=== PATIENT | female | born 2005 | race Hispanic/Latino ===

== ENCOUNTER 2025-01-02 23:25 | Emergency (ER) | payer SELFPAY ==
[~2025-01-02] VITALS: Ht 154.9 cm; Wt 68.0 kg
--- NOTE | 2025-01-03 00:13 | NUR ---
PT SITTING IN FRONT OF TRIAGE 1 AT THIS TIME WITH FAMILY, ON PHONE . GOOD CHEST RISE AND FALL OBSERVED
[2025-01-03] MEDS ORDERED: PHEN26CR2 TP (00:33)
[2025-01-03] MEDS ORDERED: LACT20PA6 PO (00:33)
--- NOTE | 2025-01-03 00:33 | ERN ---
ED Note History of Present Illness Stated Complaint: RECTAL BALL Chief Complaint: Hemorrhoids Time Seen by MD: 23:35 Time Seen by Midlevel: 23:38 Dictation: 19-YEAR-OLD FEMALE WITH NO PAST MEDICAL HISTORY COMING IN COMPLAINING OF A POSSIBLE HEMORRHOID AND CONSTIPATION. PATIENT STATES SHE HAS A HISTORY OF CONSTIPATION WITH [employer]IRY PRODUCTS AND SHE HAD A PIZZA YESTERDAY AND NOW FEELS CONSTIPATED. PATIENT STATES WHEN SHE WIPES THERE SPLINT ON THE TOILET PAPER BUT NONE IN HIS STOOL. STATES HER STOOLS ARE SMALL AND HARD. Allergies: Coded Allergies: No Known Allergies (Unverified Allergy, Unknown, 01/02/25) Past Medical History Past Medical History: Anemia Surgical History: None LMP: Dec 08, 2024 Review of System Dictation CONSTITUTIONAL: NEGATIVE FOR FEVER,CHILLS, AND WEIGHT LOSS EYES: NEGATIVE FOR INJURY, PAIN,REDNESS, AND DISCHARGE ENT: NEGATIVE FOR INJURY,PAIN OR SWELLING CARDIOVASCULAR: NEGATIVE FOR CHEST PAIN, PALPITATIONS, AND EDEMA RESPIRATORY: NEGATIVE FOR SHORTNESS OF BREATH, COUGH, AND WHEEZING, ABDOMEN/GI: NEGATIVE FOR ABDOMINAL PAIN, NAUSEA, VOMITING, DIARRHEA, COMPLAINING OF CONSTIPATION BACK: NEGATIVE FOR INJURY AND PAIN : NEGATIVE FOR INJURY, BLEEDING AND DISCHARGE MS/EXTREMITY: NEGATIVE FOR INJURY AND DEFORMITY SKIN: NEGATIVE FOR RASH, AND DISCOLORATION NEURO: NEGATIVE FOR HEADACHE, WEAKNESS, NUMBNESS, TINGLING, AND SEIZURE PSYCH: NEGATIVE FOR SUICIDE IDEATION, HOMICIDAL IDEATION, AND HALLUCINATIONS Review of Systems: was completed Initial Vital Sign VS Vital Signs Date Time Temp Pulse Resp B/P (MAP) Pulse Ox O2 Delivery O2 Flow Rate FiO2 01/02/25 23:26 98.4 83 16 124/85 100 Room Air Physical Exam Dictation GENERAL: AWAKE, ALERT, NAD HEAD/FACE: NORMOCEPHALIC, ATRAUMATIC EYES: PERRL, EOMI, VISION AT BASELINE ENT: ORAL CAVITY CLEAR, TMS CLEAR, NO SIGNS OF INFECTION NECK: TRACHEA MIDLINE, SUPPLE, NO NUCHAL RIGIDITY CARDIOVASCULAR: RRR, NORMAL S1/S2, NO MRGS, NO JVD RESPIRATORY: CTAB, NO RESPIRATORY DISTRESS, NO RALES OR WHEEZES ABDOMEN: SOFT, NON-TENDER, NON-DISTENDED, NORMAL BOWEL SOUNDS, NO GUARDING OR REBOUND. SKIN: WARM, DRY, NORMAL TURGOR, NO RASH MS/EXTREMITY: PULSES EQUAL, NO CYANOSIS, NEUROVASCULAR INTACT, FROM NEURO: COAX4, GCS 15, STRENGTH 5/5, CN 2-12 INTACT, NORMAL CEREBELLAR EXAM, NORMAL GAIT, PSYCH: NORMAL BEHAVIOR, MOOD, AND AFFECT NORMAL ON RECTAL EXAM THERE IS A SMALL HEMORRHOID EXTERNAL, NONTHROMBOSED, NO BLEEDING. ED Course ED Course Vital Signs Date Time Temp Pulse Resp B/P (MAP) Pulse Ox O2 Delivery O2 Flow Rate FiO2 01/02/25 23:26 98.4 83 16 124/85 100 Room Air Medical Decision Making MDM MDM: 19-YEAR-OLD FEMALE WITH NO PAST MEDICAL HISTORY COMING IN COMPLAINING OF A POSSIBLE HEMORRHOID AND CONSTIPATION. PATIENT STATES SHE HAS A HISTORY OF CONSTIPATION WITH [employer]ODUCTS AND SHE HAD A PIZZA YESTERDAY AND NOW FEELS CONSTIPATED. PATIENT STATES WHEN SHE WIPES THERE SPLINT ON THE TOILET PAPER BUT NONE IN HIS STOOL. STATES HER STOOLS ARE SMALL AND HARD. DIFFERENTIAL DIAGNOSIS: EXTERNAL HEMORRHOID, CONSTIPATION RATIONALE: TESTS CONSIDERED AND ORDERED SECONDARY TO SHARED DECISION MAKING INCLUDE: PREVIOUS OUTSIDE RECORDS REVIEWED: OLD ER VISITS. RISK OF COMPLICATION AND/OR MORBIDITY OR MORTALITY OF PATIENT MANAGEMENT: NONE MEDICATIONS-PER MEDICATION RECONCILIATION NEED FOR HOSPITALIZATION: PATIENT DOES NOT MEET CRITERIA FOR HOSPITALIZATION. NEED FOR EMERGENCY MAJOR/MINOR SURGERY: NO THERE ARE NO SOCIAL CONCERNS WITH THIS PATIENT. PRESCRIPTION DRUG MANAGEMENT PRESCRIPTIONS WILL INCLUDE SYMPTOMATIC CARE PATIENT'S PRIOR EXTERNAL MEDICAL RECORDS FROM OTHER ER VISITS WERE REVIEWED BY ME INDICATED. PRIOR TESTING AND RESULTS FROM PREVIOUS VISITS WERE REVIEWED. PRIOR TESTS WERE TAKEN INTO ACCOUNT WITH MEDICAL DECISION MAKING AND RESOURCE UTILIZATION, INDEPENDENT HISTORIAN/HISTORIANS WERE USED TO OBTAIN COMPLETE MEDICAL HISTORY. I INDEPENDENTLY INTERPRETED THE TEST THAT WERE PERFORMED, RESULTS WERE REVIEWED BY ME AND CONSIDERED FINDINGS ON RADIOLOGY IF ORDERED. MEDICAL MANAGEMENT AND EXAMINATION INTERPRETATION DISCUSSIONS WERE HAD BY ME WITH OTHER QUALIFIED HEALTHCARE PROFESSIONALS INDICATED FOR THE PATIENT'S CARE. DX & DISP Disposition: Discharge Departure Impression: Primary Impression: Constipation Additional Impression: External hemorrhoid Condition: Stable Scripts Lactulose (Kristalose) 20 Gram Packet 1 PACKET PO DAILY PRN for CONSTIPATION for 30 Days, #15 PACKET 0 Refills Prov: GRACIA,BETTY FOCUSER 01/03/25 Phenyleph/Pramoxin/Glycr/W.pet (Preparation H Cream) 0.25 %-1 % Cream..g. 1 APPL TP BID for 30 Days, #51 GM 0 Refills Prov: GRACIA,BETTY FOCUSER 01/03/25 Additional Instructions: AVOID EATING DAIRY PRODUCTS. DRINK PLENTY OF FLUIDS. INCLUDE MORE FIBER IN YOUR FOODS. USE MEDICATIONS PRESCRIBED. FOLLOW UP WITH PCP. Referrals: SELF,REFERRAL (PCP) Time of Disposition: 00:33 I have reviewed the case, and I agree with, Diagnosis and Plan BETTY GRACIA NP January 03, 2025 00:33
[2025-01-03 01:02] VITALS: BP 122/78; PULSE 100; RESP 18; TEMP 98; O2SAT 100
== END 2025-01-03 01:32 | disposition home or self-care (01) ==
LOC: EDH 23:25
DX: K59.00 Constipation, unspecified (principal); K64.4 Residual hemorrhoidal skin tags
CPT/HCPCS: 99283